=== PATIENT | male | born 1950 | race African-American/Black ===

== ENCOUNTER 2017-10-19 00:47 | Emergency (ER) | payer OTHER ==
[~2017-10-19] VITALS: Ht 188 cm; Wt 83.9 kg
[~2017-10-19 00:47] MED LIST: LYRICA200 MG ORAL
[2017-10-19 00:53] VITALS: BP 126/77
[2017-10-19] MEDS ORDERED: AMBIEN5 MG ORAL (00:54)
[2017-10-19] MEDS ORDERED: TAMSULOSIN HCL0.4 MG ORAL (00:54)
[2017-10-19] MEDS ORDERED: LYRICA200 MG ORAL (00:54)
[2017-10-19] MEDS ORDERED: HYDROMORPHONE HC4 M1 PO (00:54)
[2017-10-19] MEDS ORDERED: ATENOLOL50 MG ORAL (00:54)
--- NOTE | 2017-10-19 01:06 | Emergency Room Report ---
History of Present Illness General Chief Complaint: Multiple Trauma/Fall Source: Patient, EMS Present Illness HPI This is a 67-year-old male who is wheelchair-bound. He presents with chief complaint of multiple falls and able to care for himself. Patient has multiple back surgery and taking Dilaudid for it. He claimed that he is out of his pain medication. He fell couple times a day. No trauma. No fever chills but no nausea no vomiting. Usually when he try to transfer himself from wheelchair to bathroom. Similar symptom in the past. Allergies: Coded Allergies: No Known Allergies (Unverified , 12/30/15) Patient History Past Medical History: see triage record, old chart reviewed Past Surgical History: other Pertinent Family History: none Social History: Denies: smoking Immunizations: other Reviewed Nursing Documentation: PMH: Agreed; PSxH: Agreed Nursing Documentation-PMH Hx Hypertension: Yes Review of Systems Eye: Denies: eye pain, blurred vision ENT: Denies: ear pain, nose congestion, throat swelling Respiratory: Denies: cough, shortness of breath Cardiovascular: Denies: chest pain, palpitations Gastrointestinal: Denies: abdominal pain, diarrhea, nausea, vomiting Musculoskeletal: Denies: back pain, joint pain Skin: Denies: rash Neurological: Denies: headache, numbness Endocrine: Denies: increased thirst, increased urine Hematologic/Lymphatic: Denies: easy bruising All Other Systems: negative except mentioned in HPI Physical Exam Vital Signs Date Time Temp Pulse Resp B/P (MAP) Pulse Ox O2 Delivery O2 Flow Rate FiO2 10/19/17 00:36 98.2 54 18 126/77 98 Room Air 98.2 Sp02 EP Interpretation: reviewed, normal General Appearance: well appearing, no apparent distress, alert Head: normocephalic, atraumatic Eyes: bilateral eye PERRL, bilateral eye EOMI ENT: hearing grossly normal, normal pharynx Neck: full range of motion, supple, no meningismus Respiratory: chest non-tender, lungs clear, normal breath sounds Cardiovascular #1: regular rate, rhythm, no murmur Gastrointestinal: normal bowel sounds, non tender, no mass, no organomegaly, no bruit, non-distended Musculoskeletal: back normal - diffuse pain. No trauma Psychiatric: mood/affect normal Skin: warm/dry Medical Decision Making Diagnostic Impression: Primary Impression: Fall Qualified Codes: W19.XXXA - Unspecified fall, initial encounter Additional Impressions: Drug-seeking behavior Opiate dependence, continuous Cocaine abuse ER Course Patient presents with fall. I see no trauma on him. I suspect he is drug seeking because he said is out of his pain medication. On the [employer] system he gets monthly supplies of Dilaudid 4 mg #120 tablets from [facility]. He also get 30 tablets of Ambien. His last prescription was 10/04/2017. This was only 2 weeks ago. On 10/14/2017, he received Tylenol with codeine, 15 tablets, [place]. Patient claimed that he is unable to care for himself anymore. He has been in rehabilitation and long term before but didn't stay there. Now he claimed that he needs to go to a rehabilitation facility. Patient has been stable through her ED stay. His labs are unremarkable. His urine is negative for infection. Drug screen is positive for cocaine and negative for opiates. He denies selling his opiates for cocaine. Denies using cocaine. I discussed the case with [facility]. . [facility] doctor accepted patient for transfer to [facility] ER for physical therapy consult in the morning. Lab Results Impression labs normal Last Vital Signs Date Time Temp Pulse Resp B/P (MAP) Pulse Ox O2 Delivery O2 Flow Rate FiO2 10/19/17 00:53 98.2 54 18 126/77 98 Room Air 98.2 Status: unchanged Disposition: XFER SHT-TRM HOSP Condition: Stable FLORY RONDON M.D. Oct 19, 2017 01:06
[2017-10-19 02:04] LABS: BASOPHILS % (AUTO) 1.9 % (0.0-2.0); EOSINOPHILS % (AUTO) 7.7 % (0.0-3.0); HEMATOCRIT 41.2 % (42.0-52.0); HEMOGLOBIN 13.6 G/DL (14.2-18.0); LYMPHOCYTES % (AUTO) 53.9 % (20.0-45.0); MEAN CORPUSCULAR VOLUME 83 FL (80-99); MONOCYTES % (AUTO) 7.8 % (1.0-10.0); NEUTROPHILS % (AUTO) 28.7 % (45.0-75.0); PLATELET COUNT 186 K/UL (150-450); RED BLOOD COUNT 4.97 M/UL (4.70-6.10); RED CELL DISTRIBUTION WIDTH 12.4 % (11.6-14.8)
[2017-10-19 02:05] LABS: APPEARANCE,URINE CLEAR; BILIRUBIN, URINE NEGATIVE (NEGATIVE); COLOR,URINE PALE YELLOW; GLUCOSE, URINE (UA) NEGATIVE (NEGATIVE); KETONES,URINE NEGATIVE (NEGATIVE); LEUKOCYTE ESTERASE ,URINE NEGATIVE (NEGATIVE); NITRITE,URINE NEGATIVE (NEGATIVE); PH,URINE 6.5 (4.5-8.0); UROBILINOGEN,URINE 4 MG/DL (NORMAL)
[2017-10-19 02:08] LABS: PROTEIN,URINE NEGATIVE (NEGATIVE)
[2017-10-19 02:12] LABS: ANION GAP 5 mmol/L (5-15); BLOOD UREA NITROGEN 24 mg/dL (7-18); CALCIUM 8.3 MG/DL (8.5-10.1); CARBON DIOXIDE 29 MMOL/L (21-32); CHLORIDE 105 MMOL/L (98-107); CREATININE 1.1 MG/DL (0.55-1.30); POTASSIUM 3.9 MMOL/L (3.5-5.1); SODIUM 139 MMOL/L (136-145)
[2017-10-19 02:29] VITALS: BP 131/96
[2017-10-19 02:50] VITALS: BP 131/96
== END 2017-10-19 02:50 | disposition short-term general hospital (02) ==
LOC: EDBD 00:47 → EMR 01:00
DX: Z76.5 Malingerer [conscious simulation] (principal); F11.20 Opioid dependence, uncomplicated; F14.10 Cocaine abuse, uncomplicated; Z91.81 History of falling; I10 Essential (primary) hypertension
CPT/HCPCS: 36415; 80048; 80307; 81003; 85025; 99285